=== PATIENT | male | born 1980 | race Caucasian/White ===

== ENCOUNTER 2019-03-28 20:45 | Emergency (ER) | payer SELFPAY, OTHER ==
[2019-03-28] MEDS: SOD CHLORIDE 0.9% 1,000 ML IV (22:03)
[2019-03-28] MEDS: KETOROLAC 30 MG INJ IV (22:04)
[2019-03-28 22:24] LABS: ADD MAN DIFF? NO
[2019-03-28 22:26] LABS: BASOPHILS % 0.2 % (0.0-2.0); EOSINOPHILS % 0.2 % (0.0-7.0); HEMATOCRIT 39.5 % (42.0-52.0); HEMOGLOBIN 13.3 g/dl (14.0-18.0); LYMPHOCYTES # 1.1 10^3/ul (0.8-2.9); MEAN CORPUSCULAR HGB CONC 33.7 g/dl (32.0-37.0); MEAN CORPUSCULAR VOLUME 89.2 fl (82.0-101.0); MEAN PLATELET VOLUME 8.9 fl (7.4-10.4); MONOCYTE # 0.8 10^3/ul (0.3-0.9); MONOCYTES % 7.1 % (0.0-11.0); NEUTROPHIL # 9.4 10^3/ul (1.6-7.5); NEUTROPHILS % 82.1 % (39.0-77.0); PLATELET COUNT 302 10^3/UL (140-415); RED BLOOD COUNT 4.43 10^6/ul (4.70-6.10); RED CELL DISTRIBUTION WIDTH 11.7 % (11.5-14.5)
[2019-03-28 22:26] LABS: WHITE BLOOD COUNT 11.4 10^3/ul (4.8-10.8)
[2019-03-28 22:50] LABS: ALANINE AMINOTRANSFERASE 31 IU/L (13-69); ALBUMIN 4.6 g/dl (3.3-4.9); ALBUMIN/GLOBULIN RATIO 1.31; ALKALINE PHOSPHATASE 91 IU/L (42-121); ANION GAP 11 (5-13); ASPARTATE AMINO TRANSFERASE 24 IU/L (15-46); BLOOD UREA NITROGEN 15 mg/dl (7-20); C-REACTIVE PROTEIN 2.7 mg/dl (0.0-0.9); CALCIUM 9.5 mg/dl (8.4-10.2); CARBON DIOXIDE 28 mmol/L (21-31); CHLORIDE 99 mmol/L (97-110); CREATININE 0.77 mg/dl (0.61-1.24); Estimated GFR > 60 mL/min (>60); GLUCOSE 145 mg/dl (70-220); POTASSIUM 3.9 mmol/L (3.5-5.1); SODIUM 138 mmol/L (135-144); TOTAL PROTEIN 8.1 g/dl (6.1-8.1)
[2019-03-28 22:59] LABS: URIC ACID 5.7 mg/dl (3.1-7.9)
[2019-03-28 23:32] LABS: ERYTHROCYTE SEDIMENTATION RATE 10 mm/Hr (0-15)
== END 2019-03-28 23:58 | disposition home or self-care (01) ==
LOC: FTE 20:45
DX: M25.511 Pain in right shoulder (principal); M79.631 Pain in right forearm
CPT/HCPCS: 36415; 73030-RT; 73090-RT; 80053; 84560; 85025; 85651; 86140; 96361; 96374; 99284-25

== ENCOUNTER 2019-04-18 07:31 | Emergency (ER) | payer SELFPAY ==
[2019-04-18] MEDS: KETOROLAC 30 MG INJ IV (07:50)
[2019-04-18 07:51] LABS: ADD MAN DIFF? NO
[2019-04-18 07:52] LABS: WHITE BLOOD COUNT 13.1 10^3/ul (4.8-10.8)
[2019-04-18 07:52] LABS: BASOPHILS % 0.2 % (0.0-2.0); EOSINOPHILS # 0.1 10^3/ul (0.0-0.5); EOSINOPHILS % 0.4 % (0.0-7.0); HEMATOCRIT 38.9 % (42.0-52.0); HEMOGLOBIN 13.1 g/dl (14.0-18.0); LYMPHOCYTES # 1.3 10^3/ul (0.8-2.9); MEAN CORPUSCULAR HEMOGLOBIN 29.8 pg (29.0-33.0); MEAN CORPUSCULAR HGB CONC 33.7 g/dl (32.0-37.0); MEAN CORPUSCULAR VOLUME 88.6 fl (82.0-101.0); MEAN PLATELET VOLUME 9.2 fl (7.4-10.4); MONOCYTE # 1.1 10^3/ul (0.3-0.9); MONOCYTES % 8.5 % (0.0-11.0); NEUTROPHIL # 10.6 10^3/ul (1.6-7.5); NEUTROPHILS % 80.5 % (39.0-77.0); PLATELET COUNT 250 10^3/UL (140-415); RED BLOOD COUNT 4.39 10^6/ul (4.70-6.10); RED CELL DISTRIBUTION WIDTH 11.9 % (11.5-14.5)
[2019-04-18 08:11] LABS: ANION GAP 10 (5-13); BLOOD UREA NITROGEN 12 mg/dl (7-20); C-REACTIVE PROTEIN 1.4 mg/dl (0.0-0.9); CALCIUM 9.1 mg/dl (8.4-10.2); CARBON DIOXIDE 24 mmol/L (21-31); CHLORIDE 101 mmol/L (97-110); CREATININE 0.54 mg/dl (0.61-1.24); Estimated GFR > 60 mL/min (>60); GLUCOSE 138 mg/dl (70-220); POTASSIUM 3.7 mmol/L (3.5-5.1); SODIUM 135 mmol/L (135-144); URIC ACID 4.3 mg/dl (3.1-7.9)
[2019-04-18 09:11] LABS: ERYTHROCYTE SEDIMENTATION RATE 5 mm/Hr (0-15)
[2019-04-18] MEDS: ONDANSETRON 4 MG INJ IV (09:18)
[2019-04-18] MEDS: morphine 4 MG/ML VIAL IV (09:18)
[2019-04-18] MEDS: DEXAMETHASONE 10 MG/ML 1 ML INJ IV (09:18)
== END 2019-04-18 10:00 | disposition home or self-care (01) ==
LOC: E/R 07:31
DX: M25.512 Pain in left shoulder (principal); M19.90 Unspecified osteoarthritis, unspecified site
CPT/HCPCS: 36415; 73030; 80048; 84560; 85025; 85651; 86140; 96374; 96375; 99284-25